=== PATIENT | male | born 1960 | race Caucasian/White ===

== ENCOUNTER 2017-03-02 09:45 | Inpatient (IN) | payer OTHER ==
[2017-03-02 12:46] VITALS: BMI 25.9
--- NOTE | 2017-03-02 13:30 | HP ---
CIWA Score - CIWA Score Nausea/Vomitin-No Nausea/No Vomiting Muscle Tremors: 4-Moderate,w/Arms Extend Anxiety: 4-Mod. Anxious/Guarded Agitation: 4-Moderately Restless Paroxysmal Sweats: 3 Orientation: 0-Oriented Tacttile Disturbances: 0-None Auditory Disturbances: 0-None Visual Disturbances: 0-None Headache: 1-Very Mild CIWA-Ar Total Score: 16 Admission ROS BHS - HPI Chief Complaint: I need help Allergies/Adverse Reactions: Allergies Allergy/AdvReac Type Severity Reaction Status Date / Time penicillin G Allergy Swelling Verified 03/02/17 13:15 History of Present Illness: Pt is a 56yr old male with a history of alcohol dependence seeking detox for treatment. pt is also on a suboxone treatment verified with his pharmacy last dose taken yesterday. pt receives 8mg/2mg films three times a day. Exam Limitations: No Limitations - Ebola screening Have you traveled outside of the country in the last 21 days: No Have you had contact with anyone from an Ebola affected area: No Have you been sick,other than usual withdrawal symptoms: No - Review of Systems Constitutional: Chills, Diaphoresis, Night Sweats, Changes in sleep, Unintentional Wgt. Loss EENT: reports: Nose Congestion Respiratory: reports: No Symptoms reported Cardiac: reports: No Symptoms Reported GI: reports: Poor Appetite, Poor Fluid Intake, Indigestion : reports: No Symptoms Reported Musculoskeletal: reports: No Symptoms Reported Integumentary: reports: Flushing, Sweating Neuro: reports: Tingling, Tremors Endocrine: reports: Excessive Sweating, Flushing, Intolerance to Cold, Intolerance to Heat Hematology: reports: No Symptoms Reported Psychiatric: reports: Judgement Intact, Mood/Affect Appropiate, Orientated x3, Agitated, Anxious Other Systems: Reviewed and Negative Patient History - Patient Medical History Hx Anemia: No Hx Asthma: Yes Hx Chronic Obstructive Pulmonary Disease (COPD): No Hx Cancer: No Hx Cardiac Disorders: No Hx Congestive Heart Failure: No Hx Hypertension: No Hx Hypercholesterolemia: No Hx Pacemaker: No HX Cerebrovascular Accident: No Hx Seizures: No Hx Dementia: No Hx Diabetes: No Hx Gastrointestinal Disorders: Yes (gerd) Hx Liver Disease: No Hx Genitourinary Disorders: No Hx Sexually Transmitted Disorders: No Hx Renal Disease (ESRD): No Hx Thyroid Disease: No Hx Human Immunodeficiency Virus (HIV): No (negative) Hx Hepatitis C: Yes Hx Depression: Yes Hx Suicide Attempt: No Hx Bipolar Disorder: Yes Hx Schizophrenia: No - Patient Surgical History Past Surgical History: Yes Hx Orthopedic Surgery: Yes (left elbow fx) - PPD History Previous Implant?: Yes Documented Results: Negative w/o proof PPD to be Administered?: Yes - Reproductive History Patient is a Female of Child Bearing Age (11 -55 yrs old): No - Smoking Cessation Smoking history: Current every day smoker Have you smoked in the past 12 months: Yes Aproximately how many cigarettes per day: 10 Hx Chewing Tobacco Use: No Initiated information on smoking cessation: Yes 'Breaking Loose' booklet given: 03/02/17 - Substance & Tx. History Hx Alcohol Use: Yes Hx Substance Use: No Substance Use Type: Alcohol Hx Substance Use Treatment: Yes Family Disease History - Family Disease History Family History: Denies Admission Physical Exam BHS - Vital Signs Vital Signs: Vital Signs - 24 hr 03/02/17 12:40 Temperature 96.5 F L Pulse Rate 83 Respiratory 18 Rate Blood Pressure 118/74 - Physical General Appearance: Yes: Appropriately Dressed, Moderate Distress, Tremorous, Irritable, Sweating, Anxious HEENTM: Yes: Hearing grossly Normal Respiratory: Yes: Lungs Clear, Normal Breath Sounds, No Respiratory Distress Neck: Yes: No masses,lesions,Nodules Breast: Yes: Within Normal Limits Cardiology: Yes: Regular Rhythm, Regular Rate, S1, S2 Abdominal: Yes: Normal Bowel Sounds Genitourinary: Yes: Within Normal Limits Back: Yes: Normal Inspection Musculoskeletal: Yes: Within Normal Limits Extremities: Yes: Tremors Neurological: Yes: Fully Oriented, Alert, Normal Response Integumentary: Yes: Normal Color, Diaphoresis Lymphatic: Yes: Within Normal Limits - Diagnostic (1) Alcohol dependence with uncomplicated withdrawal Current Visit: Yes Status: Chronic (2) Asthma Current Visit: Yes Status: Chronic Qualifiers: Asthma severity: mild intermittent Asthma complication type: uncomplicated Qualified Code(s): J45.20 - Mild intermittent asthma, uncomplicated (3) Encounter for monitoring Suboxone maintenance therapy Current Visit: Yes Status: Chronic Comment: pt had his dose yesterday; pt Rx verified with his pharmacy. (4) Hepatitis C Current Visit: Yes Status: Chronic Qualifiers: Viral hepatitis chronicity: chronic Hepatic coma status: without hepatic coma Qualified Code(s): B18.2 - Chronic viral hepatitis C (5) GERD (gastroesophageal reflux disease) Current Visit: Yes Status: Chronic Qualifiers: Esophagitis presence: without esophagitis Qualified Code(s): K21.9 - Gastro-esophageal reflux disease without esophagitis Cleared for Admission BHS - Detox or Rehab S Level of Care: Medically Managed Detox Regimen/Protocol: Librium BHS Breath Alcohol Content Breath Alcohol Content: 0.180 Urine Drug Screen - Results Urine Drug Screen Results: LISSETT-Cocaine, MTD-Methadone
[2017-03-02] MEDS ORDERED: ACETAMINOPHEN 325 MG TABLET (FP) PO PRN (14:02)
[2017-03-02] MEDS ORDERED: MAGNESIUM HYDROX 2400MG/30ML ORAL SUSPENSION 30 ML CUP PO PRN (14:02)
[2017-03-02] MEDS ORDERED: diphenhydrAMINE HCL 50 MG CAPSULE PO PRN (14:02)
[2017-03-02] MEDS ORDERED: chlordiazePOXIDE HCL 25 MG CAPSULE PO PRN (14:02)
[2017-03-02] MEDS ORDERED: MENTHOL/PHENOL 1 EACH UD MM PRN (14:02)
[2017-03-02] MEDS ORDERED: MAG HYDROX/AL HYDROX/SIMETH 30 ML UNIT-DOSE CUP PO PRN (14:02)
[2017-03-02] MEDS ORDERED: guaiFENesin/D-METHORPHAN HB 10 ML UNIT-DOSE CUPS PO PRN (14:02)
[2017-03-02] MEDS ORDERED: MAGNESIUM CITRATE 300 ML BOTTLE PO PRN (14:02)
[2017-03-02] MEDS ORDERED: P-EPHED 60MG/TRIPROLIDI 2.5MG TABLET PO PRN (14:02)
[2017-03-02] MEDS ORDERED: IBUPROFEN 400 MG TABLET (FP) PO PRN (14:02)
[2017-03-02] MEDS ORDERED: hydrOXYzine PAMOATE 50 MG CAPSULE (FP) PO PRN (14:02)
[2017-03-02] MEDS ORDERED: LOPERAMIDE HCL 2 MG CAPSULE PO PRN (14:02)
[2017-03-02] MEDS ORDERED: ALBUTEROL SO4 6.7 GM HFA INHALER IH PRN (14:05)
[2017-03-02] MEDS ORDERED: chlordiazePOXIDE HCL 25 MG CAPSULE PO ONE (14:30)
[2017-03-02] MEDS: chlordiazePOXIDE HCL 25 MG CAPSULE PO SCH ×2 (17:15→22:39)
[2017-03-02 18:02] LABS: URINE APPEARANCE CLEAR; URINE BILIRUBIN NEGATIVE (NEGATIVE); URINE BLOOD NEGATIVE (NEGATIVE); URINE COLOR YELLOW; URINE GLUCOSE (UA) NEGATIVE (NEGATIVE); URINE KETONE NEGATIVE (NEGATIVE); URINE LEUK ESTERASE NEGATIVE (NEGATIVE); URINE NITRITE NEGATIVE (NEGATIVE); URINE PROTEIN NEGATIVE (NEGATIVE); URINE UROBILINOGEN NEGATIVE E.U./dl (0.2-1.0)
[2017-03-02] MEDS: BUPRENORPHINE/NALOXONE 8 MG/2 MG FILM PACKET SL SCH (22:38)
[2017-03-02] MEDS: THIAMINE HCL 100 MG TABLET (FP) PO SCH (22:38)
[2017-03-03] MEDS: chlordiazePOXIDE HCL 25 MG CAPSULE PO SCH ×4 (06:09→22:42)
[2017-03-03] MEDS: BUPRENORPHINE/NALOXONE 8 MG/2 MG FILM PACKET SL SCH ×3 (06:09→22:42)
[2017-03-03] MEDS: NICOTINE POLACRILEX 4 MG GUM BC PRN (08:55)
[2017-03-03 09:44] LABS: MCH 32.2 pg (25.7-33.7); MCHC 32.7 g/dl (32.0-35.9); MEAN CELL VOLUME 98.4 fl (80-96); MEAN PLT VOLUME 10.4 fl (7.5-11.1); PLATELET COUNT 207 K/MM3 (134-434); RDW 14.2 % (11.9-15.9); WHITE BLOOD COUNT 7.4 K/mm3 (4.0-10.0)
[2017-03-03 09:58] LABS: URINE APPEARANCE CLEAR; URINE BILIRUBIN NEGATIVE (NEGATIVE); URINE BLOOD NEGATIVE (NEGATIVE); URINE COLOR LTYELLOW; URINE GLUCOSE (UA) NEGATIVE (NEGATIVE); URINE KETONE NEGATIVE (NEGATIVE); URINE LEUK ESTERASE NEGATIVE (NEGATIVE); URINE NITRITE NEGATIVE (NEGATIVE); URINE PROTEIN NEGATIVE (NEGATIVE); URINE UROBILINOGEN NEGATIVE E.U./dl (0.2-1.0)
--- NOTE | 2017-03-03 10:29 | CONSULT ---
[facility] Psychiatric Consult - Data Date of interview: 03/03/17 Admission source: [facility] Identifying data: This is a 56 year old single hispnic male father of 2, who is unemployed on SSI, residing in the [place]. Substance Abuse History: Patient reports drinking beer daily, vodka 1-2 pints daily, he is on suboxone maintainance, smokes cigarettes 1/2 ppd. Medical History: GERD, left elbow surgery,asthma. Psychiatric History: Patient denies history of psychiatric hospitalizations, reports he sees the psychiatrist in outpatient setting Yvan Sanchez states he is on klonopin and "something else" he unable to recall, thinks it might be Prozac or Seroquel, but states he does not want to take here his medications, reports he will continue his meds and f/u with his psychiatrist after he complete detox. Physical/Sexual Abuse/Trauma History: denies Mental Status Exam - Mental Status Exam Alert and Oriented to: Time, Place, Person Cognitive Function: Good Patient Appearance: Well Groomed Mood: Hopeful Affect: Appropriate, Mood Congruent Patient Behavior: Appropriate, Cooperative Speech Pattern: Clear, Appropriate Voice Loudness: Normal Thought Process: Intact, Goal Oriented Thought Disorder: Not Present Hallucinations: Denies Suicidal Ideation: Denies Homicidal Ideation: Denies Insight/Judgement: Fair Sleep: Fair Appetite: Fair Muscle strength/Tone: Normal Gait/Station: Normal Psychiatric Findings - Problem List ([place] 1, 2,3) (1) Alcohol dependence with uncomplicated withdrawal Current Visit: Yes Status: Chronic (2) Asthma Current Visit: Yes Status: Chronic Qualifiers: Asthma severity: mild intermittent Asthma complication type: uncomplicated Qualified Code(s): J45.20 - Mild intermittent asthma, uncomplicated (3) Encounter for monitoring Suboxone maintenance therapy Current Visit: Yes Status: Chronic Comment: pt had his dose yesterday; pt Rx verified with his pharmacy. (4) GERD (gastroesophageal reflux disease) Current Visit: Yes Status: Chronic Qualifiers: Esophagitis presence: without esophagitis Qualified Code(s): K21.9 - Gastro-esophageal reflux disease without esophagitis (5) Hepatitis C Current Visit: Yes Status: Chronic Qualifiers: Viral hepatitis chronicity: chronic Hepatic coma status: without hepatic coma Qualified Code(s): B18.2 - Chronic viral hepatitis C (6) Mood disorder Current Visit: Yes Status: Acute - Initial Treatment Plan Initial Treatment Plan: will continue detox. protocol, patient declined to restart medications, reports he will let to know when he will need to restart his meds.
[2017-03-03 10:31] LABS: ALBUMIN 4.5 g/dl (3.4-5.0); ALK PHOS 85 U/L (45-117); ANION GAP 12 (8-16); BILIRUBIN,TOTAL 0.3 mg/dL (0.2-1.0); CALCIUM 8.8 mg/dL (8.5-10.1); CO2 24 mmol/L (21-32); GLUCOSE,RANDOM 62 mg/dL (74-106); SGOT/AST 88 U/L (15-37); SGPT/ALT 101 U/L (12-78); TOT PROT 8.5 g/dl (6.4-8.2)
[2017-03-03] MEDS: PRENATAL VITAMINS W/ FOLIC ACID TABLET (FP) PO SCH (10:44)
[2017-03-03] MEDS: NICOTINE 21 MG/24 HOURS TOPICAL PATCH TD SCH (10:44)
--- NOTE | 2017-03-03 11:25 | PN ---
S CIWA - CIWA Score Nausea/Vomitin-No Nausea/No Vomiting Muscle Tremors: 3 Anxiety: 3 Agitation: 3 Paroxysmal Sweats: 3 Orientation: 0-Oriented Tacttile Disturbances: 0-None Auditory Disturbances: 0-None Visual Disturbances: 0-None Headache: 0-None Present CIWA-Ar Total Score: 12 BHS Progress Note (SOAP) Subjective: sweats shakes interrupted sleep agitation I would like ensure Objective: 03/03/17 11:24 Vital Signs Temperature 97.3 F L 03/03/17 10:44 Pulse Rate 73 03/03/17 10:44 Respiratory Rate 18 03/03/17 10:44 Blood Pressure 128/92 03/03/17 10:44 O2 Sat by Pulse Oximetry (%) Laboratory Tests 03/02/17 03/03/17 03/03/17 13:00 06:00 06:00 WBC 7.4 RBC 4.33 Hgb 13.9 Hct 42.6 MCV 98.4 H MCHC 32.7 RDW 14.2 Plt Count 207 MPV 10.4 Sodium 142 Potassium 4.3 Chloride 106 Carbon Dioxide 24 Anion Gap 12 BUN 12 Creatinine 1.0 Creat Clearance w eGFR > 60 Random Glucose 62 L Calcium 8.8 Total Bilirubin 0.3 AST 88 H ALT 101 H Alkaline Phosphatase 85 Total Protein 8.5 H Albumin 4.5 Urine Color Yellow Urine Appearance Clear Urine pH 5.0 Ur Specific [place] 1.016 Urine Protein Negative Urine Glucose (UA) Negative Urine Ketones Negative Urine Blood Negative Urine Nitrite Negative Urine Bilirubin Negative Urine Urobilinogen Negative Ur Leukocyte Esterase Negative 03/03/17 07:00 WBC RBC Hgb Hct MCV MCHC RDW Plt Count MPV Sodium Potassium Chloride Carbon Dioxide Anion Gap BUN Creatinine Creat Clearance w eGFR Random Glucose Calcium Total Bilirubin AST ALT Alkaline Phosphatase Total Protein Albumin Urine Color Ltyellow Urine Appearance Clear Urine pH 5.0 Ur Specific [place] 1.018 Urine Protein Negative Urine Glucose (UA) Negative Urine Ketones Negative Urine Blood Negative Urine Nitrite Negative Urine Bilirubin Negative Urine Urobilinogen Negative Ur Leukocyte Esterase Negative awake/alert ambulating no acute distress Assessment: 03/03/17 11:25 withdrawal sx Plan: continue detox increase fluids ensure bid
[2017-03-03] MEDS ORDERED: INFLUENZA VACCINE 45 MCG/0.5 ML (MDV 16-17) IM ONE (12:00)
[2017-03-03] MEDS ORDERED: PNEUMOC 13-VAL CONJ-DIP CRM/PF 0.5 ML DISP.SYRIN IM ONE (12:00)
[2017-03-03] MEDS ORDERED: PNEUMOCOCCAL 23 VACCINE 0.5 ML VIAL IM ONE (12:00)
[2017-03-03] MEDS: THIAMINE HCL 100 MG TABLET (FP) PO SCH (22:42)
--- NOTE | 2017-03-03 23:40 | EKG ---
Test Reason : Blood Pressure : / mmHG Vent. Rate : 085 BPM Atrial Rate : 085 BPM P-R Int : 132 ms QRS Dur : 096 ms QT Int : 368 ms P-R-T Axes : 074 046 045 degrees QTc Int : 437 ms NORMAL SINUS RHYTHM POSSIBLE LEFT ATRIAL ENLARGEMENT BORDERLINE ECG NO PREVIOUS ECGS AVAILABLE Confirmed by LIZANDRO BROWN, FELTON ([id number]) on 03/03/2017 11:39:25 PM Referred By: Confirmed By:FELTON BONE MD
[2017-03-04] MEDS: BUPRENORPHINE/NALOXONE 8 MG/2 MG FILM PACKET SL SCH ×2 (05:57→14:19)
[2017-03-04] MEDS: chlordiazePOXIDE HCL 25 MG CAPSULE PO SCH ×2 (05:57→10:31)
[2017-03-04] MEDS: NICOTINE POLACRILEX 4 MG GUM BC PRN (07:57)
[2017-03-04] MEDS: PRENATAL VITAMINS W/ FOLIC ACID TABLET (FP) PO SCH (10:31)
[2017-03-04] MEDS: NICOTINE 21 MG/24 HOURS TOPICAL PATCH TD SCH (10:31)
[2017-03-04 13:02] VITALS: BP 146/98; PULSE 70; TEMP 97.3
--- NOTE | 2017-03-04 13:45 | PN ---
[facility] CIWA - CIWA Score Nausea/Vomitin Muscle Tremors: 2 Anxiety: 2 Agitation: 2 Paroxysmal Sweats: 2 Orientation: 0-Oriented Tacttile Disturbances: 1-Very Mild Itch/Numbness Auditory Disturbances: 0-None Visual Disturbances: 0-None Headache: 0-None Present CIWA-Ar Total Score: 11 [facility] Progress Note (SOAP) Subjective: I feel better but tired , I was treated twice for syphilis last time 6 m ago. Objective: 03/04/17 13:44 Vital Signs Temperature 97.3 F L 03/04/17 13:01 Pulse Rate 70 03/04/17 13:01 Respiratory Rate 20 03/04/17 13:01 Blood Pressure 146/98 03/04/17 13:01 O2 Sat by Pulse Oximetry (%) Laboratory Tests 03/02/17 03/03/17 03/03/17 13:00 06:00 06:00 WBC 7.4 RBC 4.33 Hgb 13.9 Hct 42.6 MCV 98.4 H MCHC 32.7 RDW 14.2 Plt Count 207 MPV 10.4 Sodium 142 Potassium 4.3 Chloride 106 Carbon Dioxide 24 Anion Gap 12 BUN 12 Creatinine 1.0 Creat Clearance w eGFR > 60 Random Glucose 62 L Calcium 8.8 Total Bilirubin 0.3 AST 88 H ALT 101 H Alkaline Phosphatase 85 Total Protein 8.5 H Albumin 4.5 Urine Color Yellow Urine Appearance Clear Urine pH 5.0 Ur Specific [place] 1.016 Urine Protein Negative Urine Glucose (UA) Negative Urine Ketones Negative Urine Blood Negative Urine Nitrite Negative Urine Bilirubin Negative Urine Urobilinogen Negative Ur Leukocyte Esterase Negative RPR Titer T.pallidum Ab (MHA) 03/03/17 03/03/17 06:00 07:00 WBC RBC Hgb Hct MCV MCHC RDW Plt Count MPV Sodium Potassium Chloride Carbon Dioxide Anion Gap BUN Creatinine Creat Clearance w eGFR Random Glucose Calcium Total Bilirubin AST ALT Alkaline Phosphatase Total Protein Albumin Urine Color Ltyellow Urine Appearance Clear Urine pH 5.0 Ur Specific [place] 1.018 Urine Protein Negative Urine Glucose (UA) Negative Urine Ketones Negative Urine Blood Negative Urine Nitrite Negative Urine Bilirubin Negative Urine Urobilinogen Negative Ur Leukocyte Esterase Negative RPR Titer Reactive 1:1 H T.pallidum Ab (MHA) Reactive pt aox3 in nad ambulating Assessment: 03/04/17 13:45 withdrawal sx;s Plan: cont. detox increase fluids
--- NOTE | 2017-03-04 13:53 | DS ---
[facility] Detox Discharge Summary Admission Date: 03/02/17 - History Present History: Alcohol Dependence - Physical Exam Results Vital Signs: Vital Signs Temperature 97.3 F L 03/04/17 13:01 Pulse Rate 70 03/04/17 13:01 Respiratory Rate 20 03/04/17 13:01 Blood Pressure 146/98 03/04/17 13:01 O2 Sat by Pulse Oximetry (%) - Treatment Hospital Course: Detox Protocol Followed, Detoxed Safely, Responded well - Medication Discharge Medications: Ambulatory Orders Albuterol Sulfate Inhaler - [Ventolin Hfa Inhaler -] 2 inh PO Q4H PRN 03/02/17 Buprenorphine/Naloxone [Suboxone 8Mg/2Mg Sl Film -] 1 each SL TID 03/02/17 - Diagnosis (1) Alcohol dependence with uncomplicated withdrawal Current Visit: Yes Status: Chronic (2) Encounter for monitoring Suboxone maintenance therapy Current Visit: Yes Status: Chronic (3) GERD (gastroesophageal reflux disease) Current Visit: Yes Status: Chronic Qualifiers: Esophagitis presence: without esophagitis Qualified Code(s): K21.9 - Gastro-esophageal reflux disease without esophagitis (4) Hepatitis C Current Visit: Yes Status: Chronic Qualifiers: Viral hepatitis chronicity: chronic Hepatic coma status: without hepatic coma Qualified Code(s): B18.2 - Chronic viral hepatitis C - AMA Did Patient Leave Against Medical Advice: No (pt smoking in room )
[2017-03-04] MEDS ORDERED: chlordiazePOXIDE 5 MG CAPSULE PO SCH (17:00)
[2017-03-05] MEDS ORDERED: chlordiazePOXIDE HCL 10 MG CAPSULE PO SCH (17:00)
== END 2017-03-04 14:25 | disposition home or self-care (01) | DRG 773 ==
LOC: YASAS 09:45 → Y6N 13:51
PROVIDERS: ADMIT Internal Medicine Addiction Medicine; ATTEND Internal Medicine Addiction Medicine
PROC: HZ2ZZZZ Detoxification Services for Substance Abuse Treatment (ICD-10-PCS; principal; 2017-03-02)
DX: F10.230 Alcohol dependence with withdrawal, uncomplicated (principal); F11.20 Opioid dependence, uncomplicated; F17.210 Nicotine dependence, cigarettes, uncomplicated; F39 Unspecified mood [affective] disorder; K21.9 Gastro-esophageal reflux disease without esophagitis; B18.2 Chronic viral hepatitis C; J45.20 Mild intermittent asthma, uncomplicated; Z87.438 Personal history of other diseases of male genital organs
CPT/HCPCS: 36415; 80053; 81003; 85027; 86593; 86780; 90732; 93005; 93010; G0009

== ENCOUNTER 2019-03-28 18:02 | Inpatient (IN) | payer OTHER ==
[2019-03-28 22:03] VITALS: BMI 25.0
--- NOTE | 2019-03-28 22:36 | HP ---
CIWA Score Nausea/Vomitin Muscle Tremors: 3 Anxiety: 2 Agitation: 2 Paroxysmal Sweats: 2 Orientation: 4Disoriented Place/Person Tacttile Disturbances: 2-Mild Itch/Numbness/Burn Auditory Disturbances: 2-Mild Harshness/Frighten Visual Disturbances: 2-Mild Sensitivity Headache: 2-Mild CIWA-Ar Total Score: 24 - Admission Criteria [facility] Guidelines: Admission for Medically Managed Detox: Requires at least one of the followin. CIWA greater than 12 2. Seizures within the past 24 hours 3. Delirium tremens within the past 24 hours 4. Hallucinations within the past 24 hours 5. Acute intervention needed for co occurring medical disorder 6. Acute intervention needed for co occurring psychiatric disorder 7. Severe withdrawal that cannot be handled at a lower level of care (continued vomiting, continued diarrhea, abnormal vital signs) requiring intravenous medication and/or fluids 8. 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 IS REQUESTING ADMISSION TO THE DETOX UNIT AND CAME FOR MEDICAL CLEARANCE AND H AND PE Exam Limitations: No Limitations - Ebola screening Have you traveled outside of the country in the last 21 days: No (N) Have you had contact with anyone from an Ebola affected area: No Have you been sick,other than usual withdrawal symptoms: No Do you have a fever: No - Review of Systems Constitutional: See HPI, Loss of Appetite, Malaise, Weakness, Unexplained wgt Loss EENT: reports: See HPI Respiratory: reports: See HPI, Wheezing Cardiac: reports: See HPI GI: reports: See HPI, Nausea, Poor Appetite, Vomiting, Abdominal cramping : reports: See HPI Musculoskeletal: reports: See HPI, Muscle Pain, Muscle Weakness Integumentary: reports: See HPI, Sweating Neuro: reports: See HPI, Tremors, Weakness Endocrine: reports: See HPI Hematology: reports: See HPI Psychiatric: reports: Judgement Intact, Orientated x3, Anxious, Depressed Patient History - Patient Medical History Hx Anemia: No Hx Asthma: Yes Hx Chronic Obstructive Pulmonary Disease (COPD): No Hx Cancer: No Hx Cardiac Disorders: No Hx Congestive Heart Failure: No Hx Hypertension: No Hx Hypercholesterolemia: No Hx Pacemaker: No HX Cerebrovascular Accident: No Hx Seizures: No Hx Dementia: No Hx Diabetes: No Hx Gastrointestinal Disorders: Yes (gerd) Hx Liver Disease: No Hx Genitourinary Disorders: No Hx Sexually Transmitted Disorders: No Hx Renal Disease (ESRD): No Hx Thyroid Disease: No Hx Human Immunodeficiency Virus (HIV): No (negative) Hx Hepatitis C: Yes Hx Suicide Attempt: No Hx Bipolar Disorder: Yes (AND ANXIETY) Hx Schizophrenia: No - Patient Surgical History Past Surgical History: Yes Hx Neurologic Surgery: No Hx Cataract Extraction: No Hx Cardiac Surgery: No Hx Lung Surgery: No Hx Breast Surgery: No Hx Breast Biopsy: No Hx Abdominal Surgery: No Hx Appendectomy: No Hx Cholecystectomy: No Hx Genitourinary Surgery: No Hx Section: No Hx Orthopedic Surgery: Yes (left elbow fx) Anesthesia Reaction: No - PPD History Date: 03/04/17 - Smoking Cessation Smoking history: Current every day smoker Have you smoked in the past 12 months: Yes Aproximately how many cigarettes per day: 10 Hx Chewing Tobacco Use: No Initiated information on smoking cessation: Yes 'Breaking Loose' booklet given: 03/28/19 - Substance & Tx. History Hx Alcohol Use: Yes Hx Substance Use: No Substance Use Type: Alcohol, Prescribed Hx Substance Use Treatment: Yes - Substances abused Alcohol Substance route: Oral Frequency: Daily Amount used: 6 PACK + RUM BOTTLE Age of first use: 25 Date of last use: 03/28/19 Family Disease History - Family Disease History Family Disease History: Other: Father (ETOH DEPENDENT AND ) Admission Physical Exam BHS - Vital Signs Vital Signs: Vital Signs - 24 hr 03/28/19 03/28/19 21:59 22:26 Temperature 98.6 F 98.6 F Pulse Rate 73 73 Respiratory 18 18 Rate Blood Pressure 122/81 122/81 - Physical General Appearance: Yes: No Apparent Distress, Appropriately Dressed, Alcohol on Breath, Thin, Tremorous, Sweating, Anxious HEENTM: Yes: Hearing grossly Normal, Normocephalic, Normal Voice, TEN, Pharynx Normal Respiratory: Yes: Chest Non-Tender, Lungs Clear, Normal Breath Sounds, No Respiratory Distress, No Accessory Muscle Use Neck: Yes: No masses,lesions,Nodules, Supple, Trachea in good position Breast: Yes: Axillae without masses Cardiology: Yes: Regular Rhythm, Regular Rate, S1, S2 Abdominal: Yes: Normal Bowel Sounds, Non Tender, Flat, Soft Back: Yes: Normal Inspection Musculoskeletal: Yes: full range of Motion, Muscle Pain, Muscle weakness Extremities: Yes: Normal Capillary Refill, Normal Range of Motion, Non-Tender, Tremors Neurological: Yes: Fully Oriented, Alert, Motor Strength 5/5, Normal Response Integumentary: Yes: Normal Color, Warm, Moist Lymphatic: Yes: Within Normal Limits - Diagnostic (1) Anxiety disorder Current Visit: Yes Status: Chronic Qualifiers: Anxiety disorder type: generalized anxiety disorder Qualified Code(s): F41.1 - Generalized anxiety disorder (2) Bipolar disorder Current Visit: Yes Status: Chronic (3) Alcohol dependence with uncomplicated withdrawal Current Visit: No Status: Chronic (4) Asthma Current Visit: No Status: Chronic Qualifiers: Asthma severity: mild intermittent Asthma complication type: uncomplicated Qualified Code(s): J45.20 - Mild intermittent asthma, uncomplicated (5) GERD (gastroesophageal reflux disease) Current Visit: No Status: Chronic Qualifiers: Esophagitis presence: without esophagitis Qualified Code(s): K21.9 - Gastro -esophageal reflux disease without esophagitis (6) Hepatitis C Current Visit: No Status: Chronic Qualifiers: Viral hepatitis chronicity: chronic Hepatic coma status: without hepatic coma Qualified Code(s): B18.2 - Chronic viral hepatitis C Cleared for Admission [facility] - Detox or Rehab [facility] Level of Care: Medically Managed Detox Regimen/Protocol: Librium Breathalyzer - Breathalyzer Breathalyzer: 0.125 Urine Drug Screen - Test Device Lot number: [id number] Expiration date: 10/29/20 - Control Is test valid?: Yes - Results Drug screen NEGATIVE: No Urine drug screen results: LISSETT-Cocaine, MOP-Opiates, BUP-Suboxone Inpatient Rehab Admission - Rehab Decision to Admit Inpatient rehab admission?: No
[2019-03-28] MEDS ORDERED: ACETAMINOPHEN 325 MG TABLET (FP) PO PRN ×2 (22:40)
[2019-03-28] MEDS ORDERED: hydrOXYzine PAMOATE 25 MG CAPSULE (FP) PO PRN (22:40)
[2019-03-28] MEDS ORDERED: MAGNESIUM CITRATE 300 ML BOTTLE PO PRN (22:40)
[2019-03-28] MEDS ORDERED: BISMUTH SUBSALICYLATE 524 MG/30 ML UD PO PRN (22:40)
[2019-03-28] MEDS ORDERED: METHOCARBAMOL 500 MG TABLET PO PRN (22:40)
[2019-03-28] MEDS ORDERED: IBUPROFEN 400 MG TABLET (FP) PO PRN (22:40)
[2019-03-28] MEDS ORDERED: MAG HYDROX/AL HYDROX/SIMETH 30 ML UNIT-DOSE CUP PO PRN (22:40)
[2019-03-28] MEDS ORDERED: MENTHOL/PHENOL 1 EACH UD MM PRN (22:40)
[2019-03-28] MEDS ORDERED: chlordiazePOXIDE HCL 25 MG CAPSULE PO PRN (22:40)
[2019-03-28] MEDS ORDERED: MELATONIN 5 MG TABLETS PO PRN (22:40)
[2019-03-28] MEDS ORDERED: NICOTINE POLACRILEX 2 MG GUM BUC PRN (22:40)
[2019-03-29] MEDS: chlordiazePOXIDE HCL 25 MG CAPSULE PO SCH ×5 (00:25→22:05)
[2019-03-29 09:52] LABS: ALBUMIN 3.6 g/dl (3.4-5.0); ALK PHOS 92 U/L (45-117); ANION GAP 6 MMOL/L (8-16); BILIRUBIN,TOTAL 0.6 mg/dL (0.2-1); BLOOD UREA NITROGEN 16 mg/dL (7-18); CALCIUM 9.4 mg/dL (8.5-10.1); CHLORIDE 106 mmol/L (98-107); CO2 29 mmol/L (21-32); CREATININE 0.9 mg/dL (0.55-1.3); GLUCOSE,RANDOM 126 mg/dL (74-106); POTASSIUM 4.1 mmol/L (3.5-5.1); SGOT/AST 80 U/L (15-37); SGPT/ALT 61 U/L (13-61); SODIUM 141 mmol/L (136-145); TOT PROT 6.7 g/dl (6.4-8.2)
[2019-03-29 09:54] LABS: HEMATOCRIT 37.4 % (35.4-49); HEMOGLOBIN 12.4 GM/dL (11.7-16.9); MCH 32.8 pg (25.7-33.7); MCHC 33.1 g/dl (32.0-35.9); MEAN CELL VOLUME 99.2 fl (80-96); MEAN PLT VOLUME 9.7 fl (7.5-11.1); PLATELET COUNT 218 K/MM3 (134-434); RBC 3.77 M/mm3 (4.00-5.60); RDW 15.3 % (11.9-15.9)
[2019-03-29] MEDS: NICOTINE 14 MG/24 HOURS TOPICAL PATCH TD SCH (10:06)
[2019-03-29] MEDS: PRENATAL VITAMINS W/ FOLIC ACID TABLET (FP) PO SCH (10:10)
[2019-03-29 13:19] LABS: RPR REACTIVE 1:1 (NONREACTIVE)
[2019-03-29 13:20] LABS: TREPONEMA ANTIBODY PREVIOUSLY REACTIVE (NONREACTIVE)
--- NOTE | 2019-03-29 14:20 | PN ---
[facility] CIWA - CIWA Score Nausea/Vomitin-Mild Nausea/No Vomiting Muscle Tremors: 4-Moderate,w/Arms Extend Anxiety: 3 Agitation: 3 Paroxysmal Sweats: 1-Minimal Palms Moist Orientation: 3-Disoriented Date>2 days Tacttile Disturbances: 0-None Auditory Disturbances: 0-None Visual Disturbances: 0-None Headache: 0-None Present CIWA-Ar Total Score: 15 [facility] Progress Note (SOAP) Subjective: patient is in suboxone program patient can not remember the name of the program and the phone number of the program the patient wants the engineering technical writer to call his for the name of the program at [phone] Ms Epperson said "never call me again" patient found his suboxone card in his property engineering technical writer call [phone] waiting for the provider to return call for the dosage no return call engineering technical writer call the pharmacy that the patient last filled 90 films on 03/03/19 patient is taking suboxone 8-2 mg tid for "years" Objective: 03/29/19 14:20 Vital Signs Temperature 97.5 F L 03/29/19 13:28 Pulse Rate 73 03/29/19 13:28 Respiratory Rate 18 03/29/19 13:28 Blood Pressure 130/93 03/29/19 13:28 O2 Sat by Pulse Oximetry (%) Laboratory Last Values WBC 8.0 K/mm3 (4.0-10.0) 03/29/19 07:00 RBC 3.77 M/mm3 (4.00-5.60) L 03/29/19 07:00 Hgb 12.4 GM/dL (11.7-16.9) 03/29/19 07:00 Hct 37.4 % (35.4-49) 03/29/19 07:00 MCV 99.2 fl (80-96) H 03/29/19 07:00 MCH 32.8 pg (25.7-33.7) 03/29/19 07:00 MCHC 33.1 g/dl (32.0-35.9) 03/29/19 07:00 RDW 15.3 % (11.9-15.9) 03/29/19 07:00 Plt Count 218 K/MM3 (134-434) 03/29/19 07:00 MPV 9.7 fl (7.5-11.1) 03/29/19 07:00 Sodium 141 mmol/L (136-145) 03/29/19 07:00 Potassium 4.1 mmol/L (3.5-5.1) 03/29/19 07:00 Chloride 106 mmol/L (98-107) 03/29/19 07:00 Carbon Dioxide 29 mmol/L (21-32) 03/29/19 07:00 Anion Gap 6 MMOL/L (8-16) L 03/29/19 07:00 BUN 16 mg/dL (7-18) 03/29/19 07:00 Creatinine 0.9 mg/dL (0.55-1.3) 03/29/19 07:00 Creat Clearance w eGFR 87.29 (>60) 03/29/19 07:00 Random Glucose 126 mg/dL (74-106) H 03/29/19 07:00 Calcium 9.4 mg/dL (8.5-10.1) 03/29/19 07:00 Total Bilirubin 0.6 mg/dL (0.2-1) 03/29/19 07:00 AST 80 U/L (15-37) H 03/29/19 07:00 ALT 61 U/L (13-61) 03/29/19 07:00 Alkaline Phosphatase 92 U/L (45-117) 03/29/19 07:00 Total Protein 6.7 g/dl (6.4-8.2) 03/29/19 07:00 Albumin 3.6 g/dl (3.4-5.0) 03/29/19 07:00 RPR Titer Reactive 1:1 (NONREACTIVE) H 03/29/19 07:00 T.pallidum Ab (MHA) Previously reactive (NONREACTIVE) 03/29/19 07:00 lab noted Assessment: 03/29/19 14:21 withdrawal sx Plan: continue detox
[2019-03-29] MEDS: BUPRENORPHINE/NALOXONE 8 MG/2 MG FILM PACKET SL SCH ×2 (14:47→22:05)
--- NOTE | 2019-03-29 14:53 | CONSULT ---
[facility] Psychiatric Consult - Data Date of interview: 03/29/19 Admission source: [facility] Identifying data: Readmission to [facility] for this 58 y/o male self- referred for detoxification (alcohol). Seen on [facility]. Patient is single, a father of two, domiciled, unemployed and supported on SSI benefits. Substance Abuse History: Confirmed by the patient in this session. Details in current [facility] report : Smoking history: Current every day smoker. Have you smoked in the past 12 months: Yes. Aproximately how many cigarettes per day: 10. Hx Chewing Tobacco Use: No. Initiated information on smoking cessation: Yes. 'Breaking Loose' booklet given: 03/28/19. - Substance & Tx. History. Hx Alcohol Use: Yes. Hx Substance Use: No. Substance Use Type: Alcohol, Prescribed. Hx Substance Use Treatment: Yes. - Substances abused. Alcohol. Substance route: Oral. Frequency: Daily. Amount used: 6 PACK + RUM BOTTLE. Age of first use: 25. Date of last use: 03/28/19 Medical History: GERD, hepatitis C and history of orthosurgery (fracture of left elbow). Psychiatric History: Patient admits to one psychiatric hospitalization ([facility]). Diagnosed with MDD. Prescribed seroquel and prozac. Mr Flanagan indicates that he " dose not always take " his medications. Sees a psychiatrist at [facility] in the [place]. Patient denies history of suicide attempts. Physical/Sexual Abuse/Trauma History: Patient denies. Additional Comment: Urine drug screen results: LISSETT-Cocaine, MOP-Opiates, BUP- Suboxone. Noted. Mental Status Exam - Mental Status Exam Alert and Oriented to: Time, Place, Person Cognitive Function: Good Patient Appearance: Well Groomed Mood: Nervous, Anxious Affect: Mood Congruent Patient Behavior: Fatigued, Appropriate, Cooperative Speech Pattern: Clear, Appropriate (communicates with broken cambodian) Voice Loudness: Normal Thought Process: Goal Oriented Thought Disorder: Not Present Hallucinations: Denies Suicidal Ideation: Denies Homicidal Ideation: Denies Insight/Judgement: Poor Sleep: Poorly, Difficulty falling asleep Appetite: Good Muscle strength/Tone: Normal Gait/Station: Normal Psychiatric Findings - Problem List ([place] 1, 2,3) (1) Alcohol dependence with uncomplicated withdrawal Current Visit: Yes Status: Acute (2) Nicotine dependence Current Visit: Yes Status: Chronic (3) Alcohol-induced mood disorder Current Visit: Yes Status: Chronic (4) Depressive disorder Current Visit: Yes Status: Chronic Comment: By history. (5) Insomnia Current Visit: Yes Status: Chronic - Initial Treatment Plan Initial Treatment Plan: Psychoeducation. Sleep hygiene. Detoxification. Seroquel 50 mg po hs. Side effects/benefits discussed with the patient. Declines to resume prozac at this time. Mr Flanagan agrees to this plan of care. Observation.
[2019-03-29] MEDS: QUEtiapine FUMARATE 50 MG TABLET PO SCH (22:06)
[2019-03-29] MEDS: THIAMINE HCL 100 MG TABLET (FP) PO SCH (22:06)
[2019-03-30] MEDS: MAGNESIUM HYDROX 2400MG/30ML ORAL SUSPENSION 30 ML CUP PO PRN (03:15)
[2019-03-30] MEDS: BUPRENORPHINE/NALOXONE 8 MG/2 MG FILM PACKET SL SCH ×3 (05:39→22:06)
[2019-03-30] MEDS: chlordiazePOXIDE HCL 25 MG CAPSULE PO SCH ×3 (05:39→17:04)
[2019-03-30] MEDS: PRENATAL VITAMINS W/ FOLIC ACID TABLET (FP) PO SCH (10:15)
[2019-03-30] MEDS: NICOTINE 14 MG/24 HOURS TOPICAL PATCH TD SCH (10:16)
--- NOTE | 2019-03-30 13:03 | PN ---
S CIWA - CIWA Score Nausea/Vomitin-Mild Nausea/No Vomiting Muscle Tremors: 4-Moderate,w/Arms Extend Anxiety: 3 Agitation: 2 Paroxysmal Sweats: 1-Minimal Palms Moist Orientation: 0-Oriented Tacttile Disturbances: 0-None Auditory Disturbances: 0-None Visual Disturbances: 0-None Headache: 1-Very Mild CIWA-Ar Total Score: 12 S Progress Note (SOAP) Subjective: feeling ok since taking suboxone tid patient considers returning to suboxone program for medical and mental issues Objective: 03/30/19 13:05 Vital Signs Temperature 97.1 F L 03/30/19 09:28 Pulse Rate 62 03/30/19 09:28 Respiratory Rate 18 03/30/19 09:28 Blood Pressure 131/83 03/30/19 09:28 O2 Sat by Pulse Oximetry (%) Laboratory Last Values WBC 8.0 K/mm3 (4.0-10.0) 03/29/19 07:00 RBC 3.77 M/mm3 (4.00-5.60) L 03/29/19 07:00 Hgb 12.4 GM/dL (11.7-16.9) 03/29/19 07:00 Hct 37.4 % (35.4-49) 03/29/19 07:00 MCV 99.2 fl (80-96) H 03/29/19 07:00 MCH 32.8 pg (25.7-33.7) 03/29/19 07:00 MCHC 33.1 g/dl (32.0-35.9) 03/29/19 07:00 RDW 15.3 % (11.9-15.9) 03/29/19 07:00 Plt Count 218 K/MM3 (134-434) 03/29/19 07:00 MPV 9.7 fl (7.5-11.1) 03/29/19 07:00 Sodium 141 mmol/L (136-145) 03/29/19 07:00 Potassium 4.1 mmol/L (3.5-5.1) 03/29/19 07:00 Chloride 106 mmol/L (98-107) 03/29/19 07:00 Carbon Dioxide 29 mmol/L (21-32) 03/29/19 07:00 Anion Gap 6 MMOL/L (8-16) L 03/29/19 07:00 BUN 16 mg/dL (7-18) 03/29/19 07:00 Creatinine 0.9 mg/dL (0.55-1.3) 03/29/19 07:00 Creat Clearance w eGFR 87.29 (>60) 03/29/19 07:00 Random Glucose 126 mg/dL (74-106) H 03/29/19 07:00 Calcium 9.4 mg/dL (8.5-10.1) 03/29/19 07:00 Total Bilirubin 0.6 mg/dL (0.2-1) 03/29/19 07:00 AST 80 U/L (15-37) H 03/29/19 07:00 ALT 61 U/L (13-61) 03/29/19 07:00 Alkaline Phosphatase 92 U/L (45-117) 03/29/19 07:00 Total Protein 6.7 g/dl (6.4-8.2) 03/29/19 07:00 Albumin 3.6 g/dl (3.4-5.0) 03/29/19 07:00 RPR Titer Reactive 1:1 (NONREACTIVE) H 03/29/19 07:00 T.pallidum Ab (MHA) Previously reactive (NONREACTIVE) 03/29/19 07:00 lab noted Assessment: 03/30/19 13:07 alcohol withdrawal sx Plan: continue detox
[2019-03-30] MEDS: THIAMINE HCL 100 MG TABLET (FP) PO SCH (22:05)
[2019-03-30] MEDS: QUEtiapine FUMARATE 50 MG TABLET PO SCH (22:05)
[2019-03-30] MEDS: chlordiazePOXIDE HCL 10 MG CAPSULE PO SCH (22:06)
[2019-03-30] MEDS ORDERED: chlordiazePOXIDE HCL 10 MG CAPSULE PO PRN (23:00)
[2019-03-31] MEDS: chlordiazePOXIDE HCL 10 MG CAPSULE PO SCH ×3 (05:10→17:25)
[2019-03-31] MEDS: BUPRENORPHINE/NALOXONE 8 MG/2 MG FILM PACKET SL SCH ×3 (05:10→22:16)
[2019-03-31] MEDS: PRENATAL VITAMINS W/ FOLIC ACID TABLET (FP) PO SCH (10:09)
[2019-03-31] MEDS: NICOTINE 14 MG/24 HOURS TOPICAL PATCH TD SCH (10:09)
--- NOTE | 2019-03-31 12:52 | PN ---
[facility] CIWA - CIWA Score Nausea/Vomitin-Mild Nausea/No Vomiting Muscle Tremors: 2 Anxiety: 2 Agitation: 2 Paroxysmal Sweats: 1-Minimal Palms Moist Orientation: 0-Oriented Tacttile Disturbances: 0-None Auditory Disturbances: 0-None Visual Disturbances: 0-None Headache: 0-None Present CIWA-Ar Total Score: 8 S Progress Note (SOAP) Subjective: feeling better taking seroquel 50 mg for sleep well rested patient agrees to return to suboxone program for medial and mental issues Objective: 03/31/19 12:51 Vital Signs Temperature 97.1 F L 03/31/19 09:21 Pulse Rate 65 03/31/19 09:21 Respiratory Rate 20 03/31/19 09:21 Blood Pressure 125/79 03/31/19 09:21 O2 Sat by Pulse Oximetry (%) Laboratory Last Values WBC 8.0 K/mm3 (4.0-10.0) 03/29/19 07:00 RBC 3.77 M/mm3 (4.00-5.60) L 03/29/19 07:00 Hgb 12.4 GM/dL (11.7-16.9) 03/29/19 07:00 Hct 37.4 % (35.4-49) 03/29/19 07:00 MCV 99.2 fl (80-96) H 03/29/19 07:00 MCH 32.8 pg (25.7-33.7) 03/29/19 07:00 MCHC 33.1 g/dl (32.0-35.9) 03/29/19 07:00 RDW 15.3 % (11.9-15.9) 03/29/19 07:00 Plt Count 218 K/MM3 (134-434) 03/29/19 07:00 MPV 9.7 fl (7.5-11.1) 03/29/19 07:00 Sodium 141 mmol/L (136-145) 03/29/19 07:00 Potassium 4.1 mmol/L (3.5-5.1) 03/29/19 07:00 Chloride 106 mmol/L (98-107) 03/29/19 07:00 Carbon Dioxide 29 mmol/L (21-32) 03/29/19 07:00 Anion Gap 6 MMOL/L (8-16) L 03/29/19 07:00 BUN 16 mg/dL (7-18) 03/29/19 07:00 Creatinine 0.9 mg/dL (0.55-1.3) 03/29/19 07:00 Creat Clearance w eGFR 87.29 (>60) 03/29/19 07:00 Random Glucose 126 mg/dL (74-106) H 03/29/19 07:00 Calcium 9.4 mg/dL (8.5-10.1) 03/29/19 07:00 Total Bilirubin 0.6 mg/dL (0.2-1) 03/29/19 07:00 AST 80 U/L (15-37) H 03/29/19 07:00 ALT 61 U/L (13-61) 03/29/19 07:00 Alkaline Phosphatase 92 U/L (45-117) 03/29/19 07:00 Total Protein 6.7 g/dl (6.4-8.2) 03/29/19 07:00 Albumin 3.6 g/dl (3.4-5.0) 03/29/19 07:00 RPR Titer Reactive 1:1 (NONREACTIVE) H 03/29/19 07:00 T.pallidum Ab (MHA) Previously reactive (NONREACTIVE) 03/29/19 07:00 lab noted Assessment: 03/31/19 12:52 mild alcohol withdrawal sx Plan: continue detox
[2019-03-31 21:51] VITALS: PULSE 74
[2019-03-31] MEDS: THIAMINE HCL 100 MG TABLET (FP) PO SCH (22:15)
[2019-03-31] MEDS: QUEtiapine FUMARATE 50 MG TABLET PO SCH (22:16)
[2019-03-31] MEDS ORDERED: chlordiazePOXIDE HCL 10 MG CAPSULE PO SCH (23:00)
[2019-04-01] MEDS: BUPRENORPHINE/NALOXONE 8 MG/2 MG FILM PACKET SL SCH (05:51)
[2019-04-01] MEDS: MAGNESIUM HYDROX 2400MG/30ML ORAL SUSPENSION 30 ML CUP PO PRN (06:02)
[2019-04-01 06:43] VITALS: BP 125/80; TEMP 97.9
[2019-04-01] MEDS ORDERED: chlordiazePOXIDE HCL 10 MG CAPSULE PO ONE (08:35)
--- NOTE | 2019-04-01 08:36 | DS ---
[facility] Detox Discharge Summary Admission Date: 03/28/19 Discharge Date: 04/01/19 - History Present History: Alcohol Dependence Pertinent Past History: Pt completed alcohol detox- last day today. Pt states he will f/u with [facility]. d/w pt Rx options with Campral or Naltrexone- but pt not eligible for latter as pt is on Suboxone for OUD. Pt has all meds at home - Physical Exam Results Vital Signs: Vital Signs Temperature 97.9 F 04/01/19 06:43 Pulse Rate 74 04/01/19 06:43 Respiratory Rate 18 04/01/19 06:43 Blood Pressure 125/80 04/01/19 06:43 O2 Sat by Pulse Oximetry (%) - Treatment Hospital Course: Detox Protocol Followed, Detoxed Safely, Responded well, Discharged Condition Good, Rehab Referral Accepted - Medication Discharge Medications: Ambulatory Orders Albuterol Sulfate Inhaler - [Ventolin HFA Inhaler -] 2 inh PO Q4H PRN 03/02/17 Buprenorphine/Naloxone [Suboxone 8Mg/2Mg Sl Film -] 1 each SL TID 03/02/17 Albuterol Sulfate Inhaler - [Ventolin HFA Inhaler -] 2 puff IH Q4H PRN #1 inhaler 03/04/17 Clonazepam [Klonopin] 1 mg PO DAILY 03/28/19 - AMA Did Patient Leave Against Medical Advice: No
== END 2019-04-01 08:36 | disposition home or self-care (01) | DRG 775 ==
LOC: YASAS 18:02 → Y3N 23:36
PROVIDERS: ADMIT Surgery; ATTEND Surgery
PROC: HZ2ZZZZ Detoxification Services for Substance Abuse Treatment (ICD-10-PCS; principal; 2019-03-28)
DX: F10.230 Alcohol dependence with withdrawal, uncomplicated (principal); F17.210 Nicotine dependence, cigarettes, uncomplicated; F10.24 Alcohol dependence with alcohol-induced mood disorder; F31.9 Bipolar disorder, unspecified; F41.1 Generalized anxiety disorder; G47.00 Insomnia, unspecified; K21.9 Gastro-esophageal reflux disease without esophagitis; J45.20 Mild intermittent asthma, uncomplicated; B18.2 Chronic viral hepatitis C; Z88.0 Allergy status to penicillin
CPT/HCPCS: 36415; 80053; 85027; 86593; 86780